=== PATIENT | female | born 1960 | race Caucasian/White ===

== ENCOUNTER → 2017-09-07 | Outpatient (CLI) | payer BC | END | disposition home or self-care (01) | DX: R26.2 Difficulty in walking, not elsewhere classified (principal); M25.561 Pain in right knee; M25.661 Stiffness of right knee, not elsewhere classified; M62.81 Muscle weakness (generalized); M17.11 Unilateral primary osteoarthritis, right knee | CPT/HCPCS: 97161 GP; 97165 GO; 97530 GP; 97537 GO ==

== ENCOUNTER 2017-10-03 21:21 | Inpatient (IN) | payer BC ==
[~2017-10-03] VITALS: Ht 167.6 cm; Wt 107.0 kg
[~2017-10-03 21:21] MED LIST: ASPIRIN81 M2 PO; ATARAX,VISTARIL25 MG PO; CRESTOR10 MG PO; EFFEXOR XR150 MG PO; HYDROCHLOROTHIA25 MG PO; MOTRIN600 MG PO
[2017-10-04 07:11] LABS: HEMATOCRIT 37.2 % (36.0-46.0); MCH 28.7 PG (29.0-34.0); MCHC 31.2 G/DL (30.0-36.0); MCV 92.1 FL (83-99); MEAN PLAT.VOLUME 11.5 uM^3 (9.5-12.4); PLATELET COUNT 392 K/uL (156-360); RBC DIS.WIDTH-CV 12.9 % (11.8-14.6); RBC DIS.WIDTH-SD 43.6 % (39-53); RED BLOOD COUNT 4.04 M/uL (3.80-5.20); WHITE BLOOD COUNT 12.2 K/uL (4.1-10.2)
[2017-10-04 07:49] VITALS: BP 148/70
[2017-10-04 11:34] LABS: MCH 29.2 PG (29.0-34.0); MCHC 31.5 G/DL (30.0-36.0); MCV 92.9 FL (83-99); MEAN PLAT.VOLUME 11.6 uM^3 (9.5-12.4); PLATELET COUNT 342 K/uL (156-360); RBC DIS.WIDTH-SD 44.1 % (39-53); RED BLOOD COUNT 3.66 M/uL (3.80-5.20); WHITE BLOOD COUNT 10.8 K/uL (4.1-10.2)
[2017-10-04 12:19] VITALS: BP 130/75
[2017-10-04 15:34] VITALS: BP 162/74
[2017-10-04 19:59] VITALS: BP 185/77
[2017-10-05 00:25] VITALS: BP 183/84
[2017-10-05 04:25] VITALS: BP 188/87
[2017-10-05 06:07] LABS: HEMATOCRIT 32.3 % (36.0-46.0); MCV 90.7 FL (83-99)
[2017-10-05 06:31] LABS: ANION GAP 9 MEQ/L (2-14); CHLORIDE 102 MEQ/L (99-109); GFR ESTIMATE (CALCULATED) > 59 mL/min/; GLUCOSE 130 mg/dL (70-99); POTASSIUM 4.2 MEQ/L (3.7-5.4); SAMPLE HEMOLYSIS CHECK 0; SAMPLE ICTERIC CHECK 0; SAMPLE LIPEMIA CHECK 0; SODIUM 138 MEQ/L (136-147); UREA NITROGEN (BUN) 19 mg/dL (9-23)
[2017-10-05 08:16] VITALS: BP 161/68
[2017-10-05 11:23] LABS: POINT-OF-CARE METER ID UU13113712
[2017-10-05 15:54] VITALS: BP 157/68
[2017-10-05 20:18] VITALS: BP 162/72
[2017-10-06 00:13] VITALS: BP 130/64
[2017-10-06 04:55] VITALS: BP 119/57
[2017-10-06 07:03] LABS: HEMATOCRIT 30.4 % (36.0-46.0); MCV 91.3 FL (83-99)
[2017-10-06 08:00] VITALS: BP 126/58
[2017-10-06] MEDS ORDERED: LOVENOX40 MG/0.4 SC (08:24)
[2017-10-06] MEDS ORDERED: DOCUSATE SODIU100 MG PO (08:24)
[2017-10-06] MEDS ORDERED: ENDOCET 5-3251 EACH PO (08:24)
[2017-10-06 12:00] VITALS: BP 139/72
== END 2017-10-06 16:50 | DRG 470 ==
LOC: ENRESERV 21:21 → 2SOUTH 10-04 06:36 → 3WEST 10-04 12:11 → 2SOUTH 10-04 15:29 → 3WEST 10-06 16:50
PROVIDERS: Orthopaedic Surgery
PROC: 0SRC0J9 Replacement of Right Knee Joint with Synthetic Substitute, Cemented, Open Approach (ICD-10-PCS; principal; 2017-10-04)
DX: M17.11 Unilateral primary osteoarthritis, right knee (principal); M25.562 Pain in left knee; I10 Essential (primary) hypertension; F41.9 Anxiety disorder, unspecified; F32.9 Major depressive disorder, single episode, unspecified; E66.3 Overweight; J44.9 Chronic obstructive pulmonary disease, unspecified; E78.5 Hyperlipidemia, unspecified; Z88.0 Allergy status to penicillin; Z68.36 Body mass index [BMI] 36.0-36.9, adult; Z87.891 Personal history of nicotine dependence; Z90.710 Acquired absence of both cervix and uterus; Z82.62 Family history of osteoporosis; Z80.8 Family history of malignant neoplasm of other organs or systems; Z80.41 Family history of malignant neoplasm of ovary; Z81.8 Family history of other mental and behavioral disorders
CPT/HCPCS: 73560; 80048; 82948; 85014; 85018; 85027; C1713; J1170; J1650; J2250; J2405; J2795; J7030; J7050; J7120; Q0175